=== PATIENT | male | born 1990 | race Caucasian/White ===

== ENCOUNTER 2018-02-02 03:14 | Emergency (ER) | payer OTHER ==
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
[2018-02-02 06:03] VITALS: BP 124/82
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
== END 2018-02-02 06:02 | disposition home or self-care (01) ==
PROC: 0RSSXZZ Reposition Right Carpometacarpal Joint, External Approach (ICD-10-PCS; principal; 2018-02-02)
DX: S63.124A Dislocation of interphalangeal joint of right thumb, initial encounter (principal); S09.90XA Unspecified injury of head, initial encounter; V18.0XXA Pedal cycle driver injured in noncollision transport accident in nontraffic accident, initial encounter; Y93.55 Activity, bike riding
CPT/HCPCS: L3925